=== PATIENT | female | born 1995 | race Two or more races ===

== ENCOUNTER → 2024-06-01 | Outpatient (CLI) | payer OTHER ==
[2024-06-01 13:10] LABS: HEMATOCRIT 33.4 % (36.0-47.0); HEMOGLOBIN 11.3 g/dl (12.0-15.5); MEAN CORPUSCULAR HEMOGLOBIN 32.1 pg (27.0-33.0); MEAN CORPUSCULAR HGB CONC 33.8 g/dl (32.0-36.5); MEAN CORPUSCULAR VOLUME 94.9 fl (80.0-96.0); PLATELET COUNT, AUTOMATED 187 10^3/uL (150-450); RED BLOOD COUNT 3.52 10^6/uL (4.00-5.40); WHITE BLOOD COUNT 10.4 10^3/uL (4.0-10.0)
[2024-06-01 13:32] LABS: GLUCOSE CHALLENGE TEST 1 HOUR 93 MG/DL (LESS THAN 140)
[2024-06-01 14:01] LABS: HIV 1&2 SCREEN NEGATIVE (NEGATIVE)
[2024-06-01 14:09] LABS: HEPATITIS C VIRUS ABY INDEX < 0.02 INDEX (<0.8)
[2024-06-01 16:06] LABS: GC DNA AMPLIFICATION NEGATIVE (NEGATIVE)
== END ==
LOC: M PLALAB 09:36
PROVIDERS: ATTEND Obstetrics & Gynecology
DX: Z34.93 Encounter for supervision of normal pregnancy, unspecified, third trimester (principal); Z3A.00 Weeks of gestation of pregnancy not specified

== ENCOUNTER → 2024-06-18 | Outpatient (CLI) | payer OTHER | LOC: M RAD 15:34 → EDUNIT# 16:00 | PROVIDERS: ATTEND Obstetrics & Gynecology | DX: Z34.93 Encounter for supervision of normal pregnancy, unspecified, third trimester (principal) ==

== ENCOUNTER → 2024-07-09 | Outpatient (REF) | payer OTHER | LOC: M PLALAB 10:39 | PROVIDERS: ATTEND Nurse Practitioner Family | DX: Z36.85 Encounter for antenatal screening for Streptococcus B (principal); Z3A.36 36 weeks gestation of pregnancy ==

== ENCOUNTER 2024-07-30 16:18 | Inpatient (IN) | payer OTHER ==
[~2024-07-30] VITALS: Ht 160 cm; Wt 66.5 kg
[2024-07-30] VITALS (13 sets, daily range): BP systolic 99–122; BP diastolic 50–71
[2024-07-30] MEDS ORDERED: HOME MED LIST COMPLETE! XX SCH (16:35)
[2024-07-30] MEDS ORDERED: METHYLERGONOVINE MALEATE 0.2MG/ML 1ML VIAL IM PRN (16:55)
[2024-07-30] MEDS ORDERED: LIDOCAINE 1% MDV 20ML VIAL INFIL PRN (16:55)
[2024-07-30] MEDS ORDERED: TRANEXAMIC ACID INJection 1,000 MG in NS 100 ML IV PRN (16:55)
[2024-07-30] MEDS ORDERED: CARBOPROST TROMETHAMINE 250 MCG/ML AMP IM PRN (16:55)
[2024-07-30] MEDS ORDERED: OXYTOCIN INJ 10UNITS/ML 1ML VIAL IM PRN (16:55)
[2024-07-30 17:19] LABS: HEMATOCRIT 35.4 % (36.0-47.0); HEMOGLOBIN 12.4 g/dl (12.0-15.5); MEAN CORPUSCULAR HEMOGLOBIN 32.3 pg (27.0-33.0); MEAN CORPUSCULAR VOLUME 92.2 fl (80.0-96.0); PLATELET COUNT, AUTOMATED 180 10^3/uL (150-450); RED BLOOD COUNT 3.84 10^6/uL (4.00-5.40); WHITE BLOOD COUNT 10.4 10^3/uL (4.0-10.0)
[2024-07-30] MEDS: LACTATED RINGER'S 1000 ML IV STA (18:17)
[2024-07-30 18:25] LABS: HEPATITIS C VIRUS ABY INDEX 0.02 INDEX (<0.8)
[2024-07-30] MEDS ORDERED: ePHEDrine SULFATE 25 MG/5 ML(5MG/ML) SYRINGE IVP PRN (19:05)
[2024-07-30] MEDS ORDERED: EPIDURAL/PCA KEYS XX PRN (19:05)
[2024-07-30] MEDS ORDERED: ONDANSETRON 4MG 2ML VIAL IV PRN (19:05)
[2024-07-30] MEDS ORDERED: LR 500 ML IV PRN (19:05)
[2024-07-30] MEDS ORDERED: diphenhydrAMINE 50MG/ML VIAL IV PRN (19:05)
[2024-07-30] MEDS ORDERED: NALOXONE INJ 0.4MG/1ML VIAL IV PRN (19:05)
[2024-07-30] MEDS: FENTANYL/ROPIVACAINE/NACL BAG 100 ML EPIDURAL SCH (19:12)
[2024-07-30] MEDS: OXYTOCIN DRIP 30 UNITS in IV 1 EA IV PRN (22:12)
[2024-07-30] MEDS ORDERED: ACETAMINOPHEN 325 MG TAB PO PRN (22:55)
[2024-07-30] MEDS ORDERED: MOM 30ML SUSPENSION UDC PO PRN (22:55)
[2024-07-30] MEDS ORDERED: ANUSOL HC CREAM 30GM TOP PRN (22:55)
[2024-07-30] MEDS ORDERED: IBUPROFEN 600MG TAB PO PRN (22:55)
[2024-07-31] MEDS: ACETAMINOPHEN 500 MG TAB PO PRN (01:24)
[2024-07-31] MEDS: IBUPROFEN 800 MG TAB PO PRN (01:24)
[2024-07-31 05:50] VITALS: BP 109/59; O2SAT 99
[2024-07-31] MEDS: DIBUCAINE 1% OINTMENT 30GM TOP PRN (06:48)
[2024-07-31] MEDS: PRENATAL VITAMINS CHEWABLE TABLET PO SCH (08:05)
[2024-07-31 18:00] VITALS: BP 123/60; O2SAT 99
[2024-07-31] MEDS: DOCUSATE SODIUM 100MG CAPSULE PO PRN (20:22)
[2024-08-01 06:05] VITALS: BP 108/66; O2SAT 98
[2024-08-01] MEDS: MEASLES,MUMPS,RUBELLA VACCINE INJ (MMR-II) SC.IMMUN ONE (07:07)
[2024-08-01] MEDS: RHOGAM 300MCG (1500IU) INJ IM SCH (07:07)
== END 2024-08-01 15:05 | disposition home or self-care (01) | DRG 807 ==
LOC: M LDO 16:18 → M LDI 16:51 → M OBS 07-31 05:30
PROVIDERS: ADMIT Advanced Practice Midwife; ATTEND Advanced Practice Midwife
PROC: 10E0XZZ Delivery of Products of Conception, External Approach (ICD-10-PCS; principal; 2024-07-30)
DX: O69.81X0 Labor and delivery complicated by cord around neck, without compression, not applicable or unspecified (principal); Z37.0 Single live birth; Z3A.39 39 weeks gestation of pregnancy; O71.89 Other specified obstetric trauma